=== PATIENT | female | born 1965 | race Caucasian/White ===

== ENCOUNTER → 2017-11-24 | Outpatient (CLI) | payer OTHER ==
[~2017-11-24] MED LIST: BIOT10TA PO; ESTR0.5T PO; ESTR0.62 VAGINAL; GLUCCAP4 PO; IBUP1TAB7 PO; KRIL1000 PO; OMEGCAP PO; [UNRECOGNIZED DRUG - OTHER] PO; curamin PO
[2017-11-24 12:34] LABS: BACTERIA, URINE RARE /hpf; BILIRUBIN, URINE NEG (NEG); BLOOD, URINE SMALL (NEG); GLUCOSE,URINE NEG (NEG); HYALINE CAST, URINE 3 /lpf (RARE); KETONE, URINE NEG (NEG); NITRITE,URINE NEG (NEG); PH, URINE 5.5 (5.0-8.5); SQUAMOUS EPITHELIAL CELL URINE 2 /hpf (0-5); URINE COLOR LIGHT-YELLOW (YELLW/STRAW); URINE LEUKOCYTE ESTERASE NEG (NEG)
[2017-11-24 12:37] LABS: AUTOMATED NEUTROPHIL # 4.5 TH/MM3 (1.8-7.7); BASOPHIL # 0.1 TH/MM3 (0-0.2); BASOPHIL % 0.8 % (0.0-2.0); EOSINOPHIL # 0.1 TH/MM3 (0-0.4); EOSINOPHIL % 1.6 % (0.0-4.0); HEMATOCRIT 39.1 % (35.0-46.0); HEMOGLOBIN 13.9 GM/DL (11.6-15.3); LYMPH % 30.6 % (9.0-44.0); LYMPHOCYTE # 2.3 TH/MM3 (1.0-4.8); MEAN CELL VOLUME 89.9 FL (80.0-100.0); MEAN CORPUSCULAR HEMOGLOBIN 31.9 PG (27.0-34.0); MEAN CORPUSCULAR HGB CONC 35.4 % (32.0-36.0); MEAN PLATELET VOLUME 7.6 FL (7.0-11.0); MONO % 7.8 % (0.0-8.0); MONOCYTE # 0.6 TH/MM3 (0-0.9); NEUT % 59.2 % (16.0-70.0); PLATELET COUNT 309 TH/MM3 (150-450); RED BLOOD COUNT 4.35 MIL/MM3 (4.00-5.30); RED CELL DISTRIBUTION WIDTH 13.6 % (11.6-17.2); WHITE BLOOD COUNT 7.6 TH/MM3 (4.0-11.0)
[2017-11-24 13:02] LABS: ALT (GPT) 26 U/L (10-53); AST (GOT) 15 U/L (15-37); BICARBONATE 28.2 MEQ/L (21.0-32.0); BLOOD UREA NITROGEN 12 MG/DL (7-18); CALCIUM 8.5 MG/DL (8.5-10.1); CHLORIDE 108 MEQ/L (98-107); GLOMERULAR FILTRATION RATE 75 ML/MIN (>89); GLUCOSE,FASTING 98 MG/DL (74-99); SODIUM (NA) 143 MEQ/L (136-145)
[2017-11-24 13:05] LABS: ALKALINE PHOSPHATASE 71 U/L (45-117); TOTAL BILIRUBIN ADULT 0.8 MG/DL (0.2-1.0); TOTAL PROTEIN 7.5 GM/DL (6.4-8.2)
--- NOTE | 2017-11-25 09:28 | EKG ---
Date Performed: 11/24/2017 Time Performed: 12:08:53 PTAGE: 52 years EKG: SINUS BRADYCARDIA BORDERLINE ECG NO PREVIOUS TRACING DOCTOR: Issac Mcpherson Interpretating Date/Time 11/25/2017 09:25:20
== END ==
LOC: CPRE 11:53
PROVIDERS: ATTEND Obstetrics & Gynecology Gynecology
DX: Z01.812 Encounter for preprocedural laboratory examination (principal); Z01.810 Encounter for preprocedural cardiovascular examination; K46.9 Unspecified abdominal hernia without obstruction or gangrene; N39.3 Stress incontinence (female) (male)
CPT/HCPCS: 36415; 80053; 81001; 85025; 93005

== ENCOUNTER → 2017-11-25 | Day surgery (SDC) | payer OTHER ==
--- NOTE | 2017-11-24 13:06 | MH ---
cc: GENEVA HARVEY MD DATE OF ADMISSION: 11/25/2017 DATE OF 1965. REASON FOR ADMISSION Anterior-posterior repair, transobturator sling. HISTORY OF PRESENT ILLNESS The patient is a 52-year-old white female 3, para 1. She has had a history of vaginal hysterectomy and anterior-posterior repair in 2012. She now has issues with pelvic organ prolapse that is symptomatic. She also has stress incontinence and has had urodynamic testing that shows leaking at approximately 50% capacity with no significant post-void residual and no sign of detrusor instability. PAST MEDICAL HISTORY The patient's medical history is negative for heart, lung, liver disease, hypertension and diabetes or stroke. MEDICATIONS 1. Vaginal estrogen cream. 2. Estradiol tablets 0.5 mg. 3. [id number]-[id number] vitamins. PAST SURGICAL HISTORY 1. Total vaginal hysterectomy, anterior-posterior repair. 2. Knee arthroplasty. 3. Cholecystectomy. 4. Breast reduction. ALLERGIES SULFA. CODEINE. FAMILY HISTORY Noncontributory SOCIAL HISTORY Good social support. No alcohol, tobacco or drugs. Works out regularly. 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 OB HISTORY One vaginal delivery. REVIEW OF SYSTEMS As above. No chest pain, orthopnea, PND. No nausea, vomiting, fever or chills. No vaginal bleeding or discharge. Urinary continence issues are noted above as well as pelvic prolapse and discomfort. The remainder of the 14-point review is negative. PHYSICAL EXAMINATION VITAL SIGNS: On her exam she is afebrile, vital signs stable. Blood pressure is 120/70, height is 5'5", weight is 177, BMI is 29.5. GENERAL: The patient is alert and oriented, in no acute distress no sign of cognitive dysfunction or depression. HEENT: Within normal limits. NECK: Supple. No JVD. CHEST: Clear. HEART: Regular rate and rhythm. ABDOMEN: Soft, nontender. No hepatosplenomegaly. BACK: No CVA tenderness. PELVIC EXAM: Will be detailed under anesthesia. In the office we note Aa is -1, Ap is 0. Point C is -6. Genital hiatus is 6. Perineal body is 4. Total vaginal length is 10. Further exam under anesthesia. EXTREMITIES: Normal. SKIN: Without rash. NEUROLOGIC: Nonfocal. No DVT signs. ASSESSMENT AND PLAN Patient with pelvic organ prolapse, anterior-posterior compartment Stage II. We discussed the options for management and treatment. She is aware of the risks, benefits and alternatives of the planned procedure including damage to surrounding organs, bleeding, infection, failure of repair, dyspareunia and issues with nerve and vascular injury. She has made an informed choice to proceed. Patient with stress urinary incontinence, hypermobility. No significant post-void residual, no sign of detrusor instability or abnormal EMG. She meets criteria for a transobturator sling. She is aware of the risks, benefits and alternatives including damage to surrounding organs, bleeding, infection, failure to remedy the stress incontinence, also the possibility of erosion, dyspareunia and retention are discussed and explained. At this point we anticipate outpatient procedure. She has DVT prophylaxis with sequential compression device and antibiotic prophylaxis with Ancef 2 grams. Anticipate outpatient procedure. MD BRYANT Frazier/GILA /12:38 PM /12:50 PM
[~2017-11-25] VITALS: Ht 165.1 cm; Wt 84.4 kg
[~2017-11-25] MED LIST changes: +*morphine SULFATE 4 MG/ML PERIprocedure ONLY ONE; +ACETAMINOPHEN 1000 MG/100 ML 100 ML IV ONE; +APREPITANT 40 MG CAP ONE; +CHLORHEXIDINE GLUCONATE 2 % 1 PACK (2 CLOTHS) TOPICAL PRN; +DO NOT ADM ANY ANTICOAGULANT DRUGS PRN; +ESTROGENS CONJUGATED VAG CREA 15 APPL/30 GM TUBE ONE; +FAMOTIDINE 20 MG/2 ML VIAL ONE; +KETOROLAC TROMETHAMINE 30 MG/ML (IVP) VIAL IV PUSH PRN; +LACTATED RINGER'S 1000 ML IV PRN; +LIDOCAINE 1%/EPINEPHrine 1:100,000 SOLN 50 ML VIAL ONE; +METHYLENE BLUE 10 MG/ML VIAL OTHER ONE; +METOPROLOL TARTRATE 25 MG TAB PO PRN; +MIDAZOLAM HCL 2 MG/2 ML VIAL ONE; +ONDANSETRON HCL 4 MG/2 ML VIAL IV PUSH PRN; +POVIDONE IODINE 5% (ANTISEPSIS KIT) 4 APPLICATIONS EACH NARE PRN; +SCOPOLAMINE 1.5 MG PATCH ONE; +SODIUM CHLORID 0.9% 500 ML IV PRN; -[UNRECOGNIZED DRUG - OTHER] PO; +ceFAZolin 2 GM PREMIX 50 ML IV SCH; -curamin PO; +traMADol HCL 50 MG TAB PO PRN
[2017-11-25 11:40] VITALS: BP 142/83; PULSE 65; RESP 20; TEMP 98; O2SAT 100
--- NOTE | 2017-11-26 07:14 | MP ---
cc: ISIDORO HARVEY DATE OF SURGERY 11/25/2017 PREOPERATIVE DIAGNOSES 1. Stress urinary incontinence, code N39.3. 2. Midline cystocele code N81.11. 3. Rectocele code N81.6. POSTOPERATIVE DIAGNOSES 1. Stress urinary incontinence, code N39.3. 2. Midline cystocele code N81.11. 3. Rectocele code N81.6. 4. 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 SURGEON Isidoro Harvey MD ANESTHESIA General endotracheal BLOOD LOSS 50 cc PROCEDURE 1. Anterior and posterior repair with enterocele, code 14647. 2. Transobturator sling Ilsa Desara device polypropylene code 60058. 3. External sphincteroplasty end-to-end technique 43233. 4. Diagnostic cystoscopy 52,000. 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 Point C is -8, total vaginal length is 8, genital hiatus 8, perineal body is 2, but there is a 4 cm skin bridge that is appreciated. Following repair Aa is -3, Ap is -3. Point C is -8, total vaginal length is 8, genital hiatus 5, perineal body is 5. Rectal exam normal following repair. Cystoscopy is normal following repair and sling placement. SPECIMENS Mucosa trimmed, but not sent. COMPLICATIONS None DISPOSITION Recovery room stable. COUNTS Needle and sponge counts correct. DRAINS Saravia catheter PROPHYLAXIS Antibiotic prophylaxis, Ancef 2 grams. DVT prophylaxis sequential compression device. IDENTIFICATION Time-out procedure per protocol. SUMMARY OF INDICATIONS FOR THE PROCEDURE Patient with multiple issues in the pelvic floor, namely stress incontinence, anterior and posterior wall defect. During exam under anesthesia, also noted a significant external sphincter defect. PROCEDURE The patient was taken to the operating room theater, identified, prepped and draped in a fashion appropriate for the planned procedure. She was in the dorsolithotomy position with careful attention paid to placement of legs in the stirrups to avoid undue stress to sensitive neurovascular structures. The above findings were noted. Neurovascular integrity documented. Saravia catheter was placed. Methylene blue was instilled into the bladder. The sling procedure was performed first. We identified the obturator foramen on each side, marked these areas and infiltrated with epinephrine/lidocaine solution. We identified the length of the urethra by palpating the Saravia bulb at the UVJ and then infiltrated here with epinephrine/lidocaine solution. Careful dissection was performed with sharp scissors. There was moderate scarring as a result of the patient's prior surgical procedures. There was no spill of methylene blue with dissection. We mobilized the urethra nicely, took the dissection up to the pubic rami bilaterally. A C-hook was placed from a lateral to medial position, tape was placed without complication. No spill of methylene blue. Cystoscopy confirmed good placement of the tape with no sign of any damage to the urethra or the bladder. The dome and base of bladder normal. The remainder of the anterior repair was performed with delayed absorbable suture. The mucosa was closed with a series of the [id number] sutures. There still remained significant posterior wall defect and the significant sphincter defect. We excised the skin bridge and then we dissected the vaginal mucosa from the perirectal tissues, encountered an enterocele. This was repaired with delayed absorbable suture. We also performed a modified plication and site specific repair technique with delayed absorbable suture with good result, trimmed a small amount of vaginal mucosa, closed the mucosa with a running Vicryl suture and used hemostatic matrix for hemostasis. The sphincter repair was performed in standard end-to-end technique, identified the sphincter ends, brought them together with good approximation. This gave significant boost to the perineal body, as well as closed down the vaginal introitus. A subcuticular stitch was used to closed the perineal skin. The procedure was concluded. The patient reversed from anesthesia, taken to recovery room in stable condition. MD BRYANT Frazier/MIKE /12:01 PM /6:47 AM
== END | disposition home or self-care (01) ==
LOC: HSDC 05:40 → EDUNIT# 08:00
PROVIDERS: ATTEND Obstetrics & Gynecology Gynecology
DX: N39.3 Stress incontinence (female) (male) (principal); K62.81 Anal sphincter tear (healed) (nontraumatic) (old); Z88.2 Allergy status to sulfonamides; Z88.5 Allergy status to narcotic agent
CPT/HCPCS: 00860; 46750; 57260; 57288; C1771; J0131; J0690; J2250; J2270; J3010; J7120; J8501